=== PATIENT | female | born 1950 | race Caucasian/White ===

== ENCOUNTER → 2016-09-26 | Outpatient (CLI) | payer OTHER, MEDICARE ==
--- NOTE | 2016-09-26 19:09 | MA ---
Screening Digital Mammogram with Digital Breast Tomosynthesis Clinical Indications: Routine screening. Previous history of left-sided breast cancer with lumpectomy and radiation treatment along with chemotherapy. Technique: Standard cephalocaudal projections are obtained. Digital breast tomosynthesis was perform ed in the MLO projection with reconstruction at 1.0 mm slice thickness and composite MLO views recons tructed. This examination is processed by the CAD computer aided detection system. Comparison: April 02, 2016; September 29, 2015; September 23, 2015; and studies dating back to June 21. Breast density: C; The breasts are heterogeneously dense, which may obscure small masses. Findings: CAD was reviewed. There are no new masses, new clusters of microcalcifications, or significant axillary lymphadenopathy . There is some architectural distortion upper inner left breast from previous lumpectomy. Impression: Benign findings. BI-RADS 2. Recommendation: Routine screening mammogram is recommended in one year. Dense mammographic pattern limits the sensitivity of mammography in this patient. If there is a clini dominique palpable abnormality, recommend additional imaging with ultrasound if clinically indicated. [facility] will send a result letter to the patient. Negative mammography should not preclude additional workup of a clinically suspicious finding. The patient's information is entered into a reminder system with a target due date for her next mammo gram.
== END ==
LOC: FIMAGING 14:01
DX: Z12.31 Encounter for screening mammogram for malignant neoplasm of breast (principal); Z85.3 Personal history of malignant neoplasm of breast; Z92.3 Personal history of irradiation; Z92.21 Personal history of antineoplastic chemotherapy
CPT/HCPCS: G0202

== ENCOUNTER → 2016-09-26 | Outpatient (CLI) | payer OTHER, MEDICARE | LOC: BHFA 14:45 | PROVIDERS: ATTEND Internal Medicine Cardiovascular Disease | DX: I25.10 Atherosclerotic heart disease of native coronary artery without angina pectoris (principal) ==

== ENCOUNTER 2017-04-03 18:42 | Emergency (ER) | payer OTHER, MEDICARE ==
[2017-04-03] MEDS ORDERED: PENICILLIN VK 500 MG TAB PO ONE (19:17)
[2017-04-03] MEDS ORDERED: ACETAMINOPHEN 325 MG TAB PO ONE (19:17)
--- NOTE | 2017-04-03 19:19 | EDPHY ---
H & P Stated Complaint: fever tooth pulled saturday Time Seen by Provider: 04/03/17 18:57 HPI/ROS: CHIEF COMPLAINT: tooth complaint, fevers, chills HISTORY OF PRESENT ILLNESS: 67-year-old female presents emergency department complaining of left-sided facial redness and swelling, subjective fevers and chills. Patient had a left lower posterior molar removed on Saturday for an infection. She was sent home with a prescription for hydrocodone. Patient reports she has never been on any antibiotics for this. Patient reports minimal tooth pain. Increasing left-sided facial redness. Patient reports subjective fevers and chills, decreased appetite today, mild nausea. She denies chest pain or shortness of breath, no cough, no difficulty swallowing, no throat swelling. Patient denies urinary symptoms, no neck pain. REVIEW OF SYSTEMS: A comprehensive 10 point review of systems is otherwise negative aside from elements mentioned in the history of present illness. Source: Patient Exam Limitations: No limitations - Personal History Current Tetanus/Diphtheria Vaccine: Unsure Current Tetanus Diphtheria and Acellular Pertussis (TDAP): Unsure - Medical/Surgical History Hx Asthma: No Hx Chronic Respiratory Disease: No Hx Diabetes: No Hx Cardiac Disease: No Hx Renal Disease: No Hx Cirrhosis: No Hx Alcoholism: No Hx HIV/AIDS: No Hx Splenectomy or Spleen Trauma: No Other PMH: hypothyroid high chol, breast CA, glaucoma - Social History Smoking Status: Former smoker Drug Use: None - Physical Exam Exam: Physical Exam Gen: Alert and Oriented, NAD HEENT: PERRL, moist mucous membranes, left cheek with mild erythema, mild swelling, left lower posterior molar missing, purulent material in socket, no surrounding swelling, mild surrounding erythema, uvula midline. No evidence of peritonsillar abscess NECK: no meningismus CV: regular rate and regular rhythm PULM: CTAB, no wheezes ABDOMEN: soft, non tender to palpation, BS present BACK: No CVA tenderness NEURO: Neurologically grossly intact EXTREMITIES: normal appearing SKIN: no rash or break in skin on exposed skin PSYCH: answers questions appropriately. Constitutional: Initial Vital Signs Temperature (C) 37.7 C 04/03/17 18:46 Heart Rate 89 04/03/17 18:46 Respiratory Rate 16 04/03/17 18:46 Blood Pressure 112/54 L 04/03/17 18:46 O2 Sat (%) 93 04/03/17 18:46 O2 Delivery Mode Room Air Allergies/Adverse Reactions: ciprofloxacin [From Cipro] Allergy (Verified 10/21/14 13:51) ciprofloxacin HCl [From Cipro] Allergy (Verified 10/21/14 13:51) codeine Allergy (Verified 10/21/14 13:51) Home Medications: Medication Instructions Recorded Penicillin V Potassium [Pen Vk] 500 mg PO Q6H 10 Days 04/03/17 Medical Decision Making ED Course/Re-evaluation: 67-year-old nontoxic-appearing female presents subjective fevers chills left- sided erythema after recent molar removal 3 days ago. Patient will be discharged with a prescription for penicillin. She will follow up with her dentist at 1st available appointment. She is given strict return precautions for worsening symptoms. Patient is comfortable with this plan. Departure - Departure Disposition: Home, Routine, Self-Care Clinical Impression: Dental abscess Condition: Good Instructions: Dental Abscess (ED) Additional Instructions: Take 500 mg of penicillin 4 times a day for 10 days. Warm compresses to the left side of her face 4 times a day for 5 minutes. Warm salt water rinses 4 times a day. Follow-up with your oral surgeon 1st available appointment, call in the morning to schedule this. Return to the emergency department for worsening symptoms, new symptoms or concerns. Take 600 mg of ibuprofen every 8 hours with food for 3-5 days as needed for pain , swelling, fevers. Referrals: Xiomara Ward MD [Primary Care Provider] - (Follow-up with your dentist) Prescriptions: Penicillin V Potassium [Pen Vk] 500 mg PO Q6H 10 Days
[2017-04-03] MEDS ORDERED: PENICILLIN VK 250 MG TAB PO ONE (19:24)
[2017-04-03 19:46] VITALS: BP 109/73; PULSE 77; RESP 18; TEMP 97.5; O2SAT 92
== END 2017-04-03 19:46 | disposition home or self-care (01) ==
DX: K04.7 Periapical abscess without sinus (principal); Z85.3 Personal history of malignant neoplasm of breast; Z87.891 Personal history of nicotine dependence

== ENCOUNTER → 2017-04-15 | Outpatient (CLI) | payer OTHER, MEDICARE | LOC: FIMAGING 10:02 | PROVIDERS: ATTEND Surgery | DX: R92.8 Other abnormal and inconclusive findings on diagnostic imaging of breast (principal); Z85.3 Personal history of malignant neoplasm of breast | CPT/HCPCS: G0206 ==

== ENCOUNTER → 2017-12-12 | Outpatient (CLI) | payer OTHER, MEDICARE | LOC: FIMAGING 10:20 | PROVIDERS: ATTEND Surgery | DX: Z12.31 Encounter for screening mammogram for malignant neoplasm of breast (principal); Z85.3 Personal history of malignant neoplasm of breast; Z80.3 Family history of malignant neoplasm of breast ==

== ENCOUNTER → 2018-01-16 | Outpatient (CLI) | payer OTHER, MEDICARE | LOC: FIMAGING 10:39 | PROVIDERS: ATTEND Internal Medicine Hematology & Oncology | DX: Z13.820 Encounter for screening for osteoporosis (principal); M81.0 Age-related osteoporosis without current pathological fracture; C50.212 Malignant neoplasm of upper-inner quadrant of left female breast; E53.8 Deficiency of other specified B group vitamins ==

== ENCOUNTER → 2018-06-02 | Outpatient (CLI) | payer OTHER, MEDICARE | LOC: FIMAGING 12:49 | PROVIDERS: ATTEND Nurse Practitioner | DX: R22.42 Localized swelling, mass and lump, left lower limb (principal); R22.41 Localized swelling, mass and lump, right lower limb ==

== ENCOUNTER → 2018-06-30 | Outpatient (CLI) | payer OTHER, MEDICARE | LOC: BHFA 14:45 | PROVIDERS: ATTEND Internal Medicine | DX: R09.89 Other specified symptoms and signs involving the circulatory and respiratory systems (principal) ==

== ENCOUNTER → 2018-12-29 | Outpatient (CLI) | payer OTHER, MEDICARE | LOC: FIMAGING 14:39 | PROVIDERS: ATTEND Internal Medicine | DX: Z12.31 Encounter for screening mammogram for malignant neoplasm of breast (principal); Z85.3 Personal history of malignant neoplasm of breast ==